=== PATIENT | female | born 1955 | race Native Hawaiian/Other Pacific Islander ===

== ENCOUNTER 2023-04-03 14:45 | Outpatient (CLI) | payer BC, OTHER | END 2023-04-03 19:24 | disposition home or self-care (01) | LOC: MAMMO 14:45 | PROVIDERS: ATTEND Internal Medicine | DX: Z12.31 Encounter for screening mammogram for malignant neoplasm of breast (principal) ==

== ENCOUNTER 2023-04-22 09:44 | Outpatient (CLI) | payer BC, OTHER | END 2023-04-22 19:56 | disposition home or self-care (01) | LOC: MAMMO 09:44 | PROVIDERS: ATTEND Specialist | DX: R92.8 Other abnormal and inconclusive findings on diagnostic imaging of breast (principal) ==